=== PATIENT | male | born 1970 | race Caucasian/White ===

== ENCOUNTER 2017-05-12 18:58 | Emergency (ER) | payer OTHER ==
[~2017-05-12] VITALS: Ht 172.7 cm; Wt 99.2 kg
[~2017-05-12 18:58] MED LIST: ADVAIR 250/501 DISK IH; CARDIZEM CD120 M1 PO; CARDIZEM120 MG PO; ELIQUIS5 MG PO; Ecotrin PO; NOHOMEMEDS; SOTALOL80 MG PO; ZOFRAN4 MG PO
[2017-05-12 19:51] LABS: BASOPHIL COUNT 0.1 K/uL (0-0.1); EOSINOPHIL (%) 5.6 % (0-5); EOSINOPHIL COUNT 0.6 K/uL (0-0.3); HEMATOCRIT 45.1 % (38.0-50.0); IMMATURE GRANULOCYTE (%) 0.3 % (0.0-0.7); INSTRUMENT ABS NEUTROPHIL CT 6.1 K/uL; LYMPHOCYTE COUNT 2.7 K/uL (1.0-2.8); MCH 29.8 PG (29.0-34.0); MCHC 34.1 G/DL (30.0-36.0); MCV 87.2 FL (86-99); MEAN PLAT.VOLUME 9.4 uM^3 (9.0-12.4); MONOCYTE (%) 6.7 % (3-12); MONOCYTE COUNT 0.7 K/uL (0-0.8); NEUTROPHIL (%) 60.3 % (45-76); NEUTROPHIL COUNT 6.1 K/uL (1.8-6.4); PLATELET COUNT 396 K/uL (156-360); RBC DIS.WIDTH-SD 38.5 % (39-53); RED BLOOD COUNT 5.17 M/uL (4.00-5.50); WHITE BLOOD COUNT 10.1 K/uL (4.1-10.2)
[2017-05-12 20:00] LABS: CHLORIDE 105 mEq/L (99-109); POTASSIUM 4.4 mEq/L (3.7-5.4); SODIUM 141 mEq/L (136-147)
[2017-05-12 20:01] LABS: MAGNESIUM 2.2 mg/dL (1.3-2.7)
[2017-05-12 20:03] LABS: GLUCOSE 87 mg/dL (70-99)
[2017-05-12 20:04] LABS: ANION GAP 11 MEQ/L (2-14)
[2017-05-12 20:05] LABS: TOTAL BILIRUBIN 0.4 mg/dL (0.0-1.0)
[2017-05-12 20:06] LABS: ALKALINE PHOSPHATASE 79 IU/L (3-129)
[2017-05-12 20:07] LABS: GFR ESTIMATE (CALCULATED) > 59 mL/min/
[2017-05-12 20:08] LABS: UREA NITROGEN (BUN) 10 mg/dL (9-23)
[2017-05-12 20:11] LABS: TROP-I INTERPRETATION NEGATIVE; TROPONIN-I < 0.01 ng/mL (0.0-0.30)
[2017-05-12 22:27] LABS: TROP-I INTERPRETATION NEGATIVE; TROPONIN-I < 0.01 ng/mL (0.0-0.30)
[2017-05-12 22:59] VITALS: BP 105/49
== END 2017-05-12 23:05 | disposition home or self-care (01) ==
LOC: EME 18:58
PROVIDERS: Emergency Medicine
DX: R07.89 Other chest pain (principal); R00.2 Palpitations; J20.9 Acute bronchitis, unspecified; I48.91 Unspecified atrial fibrillation; Z79.01 Long term (current) use of anticoagulants; J45.909 Unspecified asthma, uncomplicated
CPT/HCPCS: 71020; 80053; 83735; 83880; 84484; 85025; 93005; 94640; 99281; 99285

== ENCOUNTER 2018-01-09 02:32 | Emergency (ER) | payer OTHER ==
[~2018-01-09] VITALS: Ht 172.7 cm; Wt 107.0 kg
[2018-01-09 02:57] LABS: CHLORIDE 105 mEq/L (99-109); POTASSIUM 4.2 mEq/L (3.7-5.4); SODIUM 140 mEq/L (136-147)
[2018-01-09 02:58] LABS: GLUCOSE 91 mg/dL (70-99)
[2018-01-09 03:02] LABS: CREATININE 0.8 mg/dL (0.6-1.3); GFR ESTIMATE (CALCULATED) > 59 mL/min/ (58.99-99999)
[2018-01-09 03:03] LABS: UREA NITROGEN (BUN) 14 mg/dL (9-23)
[2018-01-09 03:09] LABS: TROP-I INTERPRETATION NEGATIVE; TROPONIN-I < 0.01 ng/mL (0.0-0.30)
[2018-01-09] MEDS ORDERED: AUGMENTIN875 MG PO (06:34)
[2018-01-09] MEDS ORDERED: ACULAR 0.5100 DROP/5 BOTH EARS (06:36)
[2018-01-09 07:05] VITALS: BP 135/77
== END 2018-01-09 07:05 | disposition home or self-care (01) ==
LOC: EME 02:32
DX: H66.92 Otitis media, unspecified, left ear (principal); J44.9 Chronic obstructive pulmonary disease, unspecified; I45.10 Unspecified right bundle-branch block; Z88.0 Allergy status to penicillin
CPT/HCPCS: 80048; 84484; 93005; 99281; 99284; J1885